=== PATIENT | female | born 1985 | race Caucasian/White ===

== ENCOUNTER 2025-05-31 11:34 | Emergency (ER) | payer OTHER, SELFPAY ==
[2025-05-31 11:51] VITALS: BP 142/82
[2025-05-31 12:00] VITALS: BP 153/86
[2025-05-31 12:09] LABS: Hematocrit 42.1 % (37.0-47.0); Hemoglobin 14.0 g/dL (12.0-16.0); Mean Corp Hgb Conc. 33.3 g/dL (33.0-37.0); Mean Corpuscular Volume 86.6 fL (81.0-99.0); Nucleated Red Blood Cells % 0 %; Platelet Count 405 10^3/uL (130-400); Red Cell Dist. Width 13.8 % (11.5-14.5)
--- NOTE | 2025-05-31 12:23 | ED.GENMED ---
History of Present Illness
General
Chief Complaint: Withdrawal Symptoms
Source: patient
Time Seen by Provider: 05/31/25 12:07
History of Present Illness
History of Present Illness:
40-year-old female with past medical history of previous intracranial bleed, hypertension, substance abuse presenting to the ER from [facility] for suspected substance use withdrawal. Patient endorses feeling shaky and
nauseous at present time. Based off report from the [facility] patient did receive clonidine and guanfacine this morning in addition to her usual morning medications. Patient's last use was early yesterday morning.
No other symptoms presently.
Past History
Past History
ED Past Medical History: Asthma, HTN and Other (Intracranial bleeding)
ED Past Surgical History: Tonsilectomy
Social History
Tobacco: Smoker
Alcohol: None
Drug: Narcotics
Living: custodial
Review of Systems
Review of Systems
All Other Systems: ROS reviewed and negative except as documented in HPI and ROS
Phy Exam
Physical Exam
Physical Exam:
GENERAL: Sleepy but arousable to voice
HEAD: Normocephalic atraumatic
EYE: conjunctiva clear
NECK: Supple
ENT: o/p clr, mmm.
CARDIAC: Mildly tachycardic rate between 100-110bpm
LUNGS: Clear breath sounds bilaterally, no acute respiratory distress, no wheezes/rales/rhonchi
NEUROLOGICAL: Alert and oriented
SKIN: Warm and dry, skin intact.
MUSCULOSKELETAL: well perfused.
PSYCH: Normal and appropriate interaction.
Scores
Heart Failure Risk
Heart Failure Risk Score: Not Applicable
Heart Score for Chest Pain Patients
STEMI patient?: Not applicable
Withdrawal Assessment of Alcohol
Withdrawal Assessment Completed?: Not applicable
Course
Orders/Labs/Results
Orders:
Orders
05/31/25 11:38
Electrocardiogram (*1) Urgent
Reason for Study: QTc Monitoring
EKG- Treatment ONCE
05/31/25 12:03
Complete Blood Count/With Diff Urgent
Comprehensive Metabolic Panel Urgent
05/31/25 12:14
Midazolam HCl [Versed] 2.5 mg IV NOW STA
Ondansetron Injectable [Zofran] 4 mg IV NOW STA
Abnormal Lab Results
05/31/25
12:03
WBC 12.3 H 10^3/uL
(4.8-10.8)
Plt Count 405 H 10^3/uL
(130-400)
Absolute Neuts (auto) 10.2 H 10^3/uL
(1.4-6.5)
Neutrophils % 83.1 H %
(42.2-75.2)
Lymphocytes % 11.7 L %
(20.5-51.1)
05/31/25 12:03
Vital Signs
Initial and Last Documented VS:
Initial Vital Signs
Temp Pulse Resp BP Pulse Ox
98.2 F 106 15 142/82 97
05/31/25 11:51 05/31/25 11:51 05/31/25 11:51 05/31/25 11:51 05/31/25 11:51
Last Documented Vital Signs
Temp Pulse Resp BP Pulse Ox
98.2 F 109 14 153/86 97
05/31/25 11:51 05/31/25 12:00 05/31/25 12:00 05/31/25 12:00 05/31/25 12:24
MDM/Problems Addressed
Differential Diagnosis Includes:
Opiate withdrawal
Electrolyte imbalance
Less concern for acute infectious etiology
No focal neurologic symptoms to make me suspect intracranial pathology
MDM/Problems Addressed:
40-year-old female presented to the ER for evaluation of suspected substance use withdrawal. Patient was treated with p.o. meds at the correctional facility earlier today. I contacted the nursing staff at [facility] who
stated that they were concerned for a more severe withdrawal which is why they sent the patient to the ER. At present time patient does seem to be experiencing some opioid based withdrawal but do not feel she needs further emergency care and that
her withdrawal can still be managed at the [facility]. We did provide a dose of Zofran for nausea here. Nursing team aware patient will be transported back to the [facility] for continued care
*Pulse Oximetry
SaO2: 97
Oxygen Mode of Delivery: Room air
Patient hypoxic: no
*Buckle Strap Puncher Interpretation
Rate: tachycardiac
Heart Rate: 105
Rhythm: sinus
*Critical Care Note
Total Time (30-74mins, 75-104mins- exclusive of procedures): Not Applicable
ED Attending Note
-
Portions of this chart may have been created with voice recognition software.� Occasional wrong word or��sound alike� substitutions may have occurred due to the inherent limitations of voice recognition software.
Discharge Plan
Departure
Patient Disposition: Home (Routine Discharge)
Date of Disposition: 05/31/25
Time of Disposition: 12:23
Patient with high blood pressure during this ER visit?: Yes
Discharge Problem:
Opioid withdrawal, Amphetamine withdrawal
Instructions: Drug Misuse and Addiction (DC)
Referrals:
[facility],Facility [Family Provider, General]
Interventions
Interventions:
*Risk Screen - Suicide Last Done: 05/31/25 11:51
*General Assessment Last Done: 05/31/25 11:51
*Neglect/Abuse Screening Last Done: 05/31/25 11:51
*ED- Fall Risk Assessment Last Done: 05/31/25 12:14
*ED COVID-19 Vaccine History Last Done: 05/31/25 12:14
ED- Neurological Assessment Last Done: 05/31/25 12:15
ED-Psychological Assessment Last Done: 05/31/25 12:15
Discharge Date and Time
Print Language: HUNGARIAN
[2025-05-31] MEDS: ZOFRAN 4 MG IV (12:27)
== END 2025-05-31 12:35 | disposition home or self-care (01) ==
LOC: EMR 11:34
PROVIDERS: EMERGENCY PHYSICIAN Emergency Medicine
DX: F11.23 Opioid dependence with withdrawal (principal); F15.23 Other stimulant dependence with withdrawal; J45.909 Unspecified asthma, uncomplicated; I10 Essential (primary) hypertension; F17.200 Nicotine dependence, unspecified, uncomplicated; Z86.73 Personal history of transient ischemic attack (TIA), and cerebral infarction without residual deficits
CPT/HCPCS: 99284; 96374; 85025; 93005

== ENCOUNTER 2025-06-01 16:18 | Emergency (ER) | payer OTHER, SELFPAY ==
[2025-06-01 16:22] VITALS: BP 144/69
--- NOTE | 2025-06-01 17:34 | ED.GENMED ---
History of Present Illness
General
Chief Complaint: Withdrawal Symptoms
Source: patient and police
Exam Limitations: none
Time Seen by Provider: 06/01/25 17:26
History of Present Illness
History of Present Illness:
See MDM
Past History
Past History
ED Past Medical History: Asthma, HTN and Other (Intracranial bleeding)
ED Past Surgical History: Tonsilectomy
Social History
Tobacco: Smoker
Alcohol: None
Drug: Narcotics
Living: assisted
Phy Exam
Physical Exam
Physical Exam:
See MDM
Course
Orders/Labs/Results
Orders:
Orders
06/01/25 16:22
Electrocardiogram (*1) Urgent
Reason for Study: Chest Pain
EKG- Treatment ONCE
06/01/25 17:32
Lorazepam [Ativan] 2 mg PO NOW STA
Ondansetron Orally Disint [Zofran Odt (Orally Disintegrating)] 4 mg PO NOW STA
Vital Signs
Initial and Last Documented VS:
Initial Vital Signs
Temp Pulse Resp BP Pulse Ox
97.9 F 98 20 144/69 99
06/01/25 16:22 06/01/25 16:22 06/01/25 16:22 06/01/25 16:22 06/01/25 16:22
Last Documented Vital Signs
Temp Pulse Resp BP Pulse Ox
97.9 F 98 20 144/69 99
06/01/25 16:22 06/01/25 16:22 06/01/25 16:22 06/01/25 16:22 06/01/25 17:36
MDM/Problems Addressed
Differential Diagnosis Includes:
Note:
CHIEF COMPLAINT(S)
High blood pressure and opioid withdrawal symptoms.
HISTORY OF PRESENT ILLNESS
The patient is a 40-year-old female presenting with elevated blood pressure and symptoms related to opioid withdrawal. She reports a history of using fentanyl and is currently undergoing withdrawal management. The patient received Suboxone
(buprenorphine/naloxone) yesterday as part of the treatment, though she suggests that it may not have been sufficiently effective as she 'feels like it got worse.' She describes feeling extremely uncomfortable from the withdrawal. The guards
indicated that she was found to have high blood pressure earlier today and they had to bring her in due to their parameters. Currently, the patient states she is feeling much better. Patient was here yesterday with a negative workup.
MEDICATIONS
Suboxone (buprenorphine/naloxone) for opioid withdrawal.
PHYSICAL EXAM
General: Alert, no acute distress.
Skin: Warm, dry.
Head: Normocephalic, atraumatic
Neck: Appears supple, trachea midline.
Eyes, Ears, Nose, Mouth, and Throat: Oral mucosa moist. Pupils equal reactive.
Cardiovascular: No signs of cyanosis
Respiratory: Respirations are non-labored.
Abdomen: Non-distended
Musculoskeletal: No deformities
Neurological: No focal neurological deficit observed.
Psychiatric: Cooperative, appropriate mood and affect.
PLAN
Administer 2 milligrams of Ativan (lorazepam) orally to help manage withdrawal symptoms and blood pressure.
Provide nausea medication if the patient is experiencing nausea.
Monitor the patients blood pressure and overall condition to ensure improvement.
Ensure the patient remains hydrated.
DIFFERENTIAL DIAGNOSIS
The Differential Diagnosis includes, in no particular order and is not limited to:
1. Opioid withdrawal syndrome
2. Essential hypertension
3. Anxiety disorder
4. Hypertensive urgency related to drug withdrawal
5. Substance-induced anxiety
6. Tachycardia secondary to withdrawal or anxiety
7. Possible dehydration
8. Adjustment disorder
9. Insomnia secondary to withdrawal
10. Nausea related to withdrawal or anxiety
SUMMARY OF ENCOUNTER
The patient, a 40-year-old female, was seen in the emergency department for elevated blood pressure and symptoms related to opioid withdrawal. The patient has a history of using fentanyl and is currently undergoing withdrawal management. She had
received Suboxone (buprenorphine/naloxone) the previous day, which she reported was not sufficiently effective. During her visit, she described severe discomfort from withdrawal symptoms. To manage her symptoms, 2 milligrams of lorazepam was
administered. After prolonged observation, the patients withdrawal symptoms were well controlled, and she was sleeping comfortably. The patients medical stability was reassessed, and she is medically cleared for incarceration.
DISPOSITION
Discharge to incarceration.
PLAN
Continue the management of opioid withdrawal symptoms with medications as prescribed in assisted. Monitor blood pressure and overall condition. Advise patient on return precautions and ensure she is comfortable with the plan.
MEDICATION RECONCILIATION
Lorazepam, 2 milligrams orally administered to control withdrawal symptoms.
MEDICAL DECISION MAKING
- Number and Complexity of Problems Addressed: Chronic conditions affecting care include opioid withdrawal syndrome and essential hypertension.
- Risk:
Prescription medication, lorazepam, was administered to manage withdrawal symptoms.
DIAGNOSIS
Opioid withdrawal syndrome (ICD-10: F11.23)
Hypertension (ICD-10: I10)
*Pulse Oximetry
SaO2: 99
Oxygen Mode of Delivery: Room air
Patient hypoxic: no
*Critical Care Note
Total Time (30-74mins, 75-104mins- exclusive of procedures): Not Applicable
ED Attending Note
-
Portions of this chart may have been created with voice recognition software.� Occasional wrong word or��sound alike� substitutions may have occurred due to the inherent limitations of voice recognition software.
Discharge Plan
Departure
Patient Disposition: Home (Routine Discharge)
Date of Disposition: 06/01/25
Time of Disposition: 18:50
Patient with high blood pressure during this ER visit?: Yes
Discharge Problem:
Drug withdrawal syndrome
Referrals:
[facility],Fac[facility] [Family Provider, General]
Activity Restrictions/Additional Instructions:
Mary Kay Frey is medically stable and cleared for incarceration.
Please continue the medications already prescribed.
Interventions
Interventions:
*Risk Screen - Suicide Last Done: 06/01/25 16:22
*General Assessment Last Done: 06/01/25 16:22
*Neglect/Abuse Screening Last Done: 06/01/25 16:22
Discharge Date and Time
Print Language: ANGUILLAN
[2025-06-01] MEDS: ZOFRAN ODT (ORALLY DISINTEGRATING) 4 MG PO (17:44)
[2025-06-01] MEDS: ATIVAN 2 MG PO (17:45)
[2025-06-01 18:00] VITALS: BP 142/74
[2025-06-01 19:20] VITALS: BP 140/74
== END 2025-06-01 19:21 | disposition home or self-care (01) ==
LOC: EMR 16:18
PROVIDERS: EMERGENCY PHYSICIAN Student in an Organized Health Care Education/Training Program
DX: F11.23 Opioid dependence with withdrawal (principal); J45.909 Unspecified asthma, uncomplicated; I10 Essential (primary) hypertension; F17.200 Nicotine dependence, unspecified, uncomplicated
CPT/HCPCS: 99282